=== PATIENT | female | born 1990 | race Two or more races ===

== ENCOUNTER → 2017-09-18 | Outpatient (CLI) | payer OTHER ==
[~2017-09-18] VITALS: Ht 163.8 cm; Wt 111.4 kg
[~2017-09-18] MED LIST: ADVAIR 100/501 DISK AEROSOL; ADVAIR 250/501 DISK IH; EPIPEN ADU0.3 MG/0.3 IM; IBUPROFEN800 MG PO; PRENATAL VITAM1 EA11 PO; PROCTOFOAM-HC10 GM PR; PROVENTIL HFA6.7 GM IH; VENTOLIN HFA18 GM IH
[2017-09-18 15:16] VITALS: BP 139/71
== END | disposition home or self-care (01) ==
LOC: IVINF 15:00
DX: Z34.83 Encounter for supervision of other normal pregnancy, third trimester (principal); Z3A.28 28 weeks gestation of pregnancy; Z67.41 Type O blood, Rh negative
CPT/HCPCS: 96372

== ENCOUNTER 2017-10-27 22:48 | Outpatient (CLI) | payer OTHER ==
[~2017-10-27] VITALS: Ht 165.1 cm; Wt 104.5 kg
[2017-10-27 23:18] VITALS: BP 116/63
[2017-10-28 00:22] VITALS: BP 102/55
== END 2017-10-28 01:17 | disposition home or self-care (01) ==
LOC: LDRP-OP 22:48 → 2WEST 22:49 → LDRP-OP 01-06 08:56
DX: O99.89 Other specified diseases and conditions complicating pregnancy, childbirth and the puerperium (principal); R11.2 Nausea with vomiting, unspecified; O99.513 Diseases of the respiratory system complicating pregnancy, third trimester; J45.909 Unspecified asthma, uncomplicated; Z3A.34 34 weeks gestation of pregnancy
CPT/HCPCS: 59025; G0378; J7120

== ENCOUNTER 2017-11-18 14:35 | Inpatient (IN) | payer OTHER ==
[~2017-11-18] VITALS: Ht 165.1 cm; Wt 111.5 kg
[2017-11-18 14:55] VITALS: BP 118/72
[2017-11-18 18:24] LABS: BASOPHIL (%) 0.1 % (0-1); EOSINOPHIL (%) 0.9 % (0-5); EOSINOPHIL COUNT 0.1 K/uL (0-0.3); HEMATOCRIT 32.1 % (36.0-46.0); HEMOGLOBIN 10.3 G/DL (11.9-15.5); IMMATURE GRANULOCYTE (%) 0.7 % (0.0-0.7); LYMPHOCYTE (%) 25.4 % (15-42); LYMPHOCYTE COUNT 2.3 K/uL (1.0-2.8); MCH 26.3 PG (29.0-34.0); MCHC 32.1 G/DL (30.0-36.0); MCV 82.1 FL (83-99); MONOCYTE (%) 5.6 % (3-12); MONOCYTE COUNT 0.5 K/uL (0-0.8); NEUTROPHIL (%) 67.3 % (45-76); PLATELET COUNT 232 K/uL (156-360); RBC DIS.WIDTH-CV 15.9 % (11.8-14.6); RBC DIS.WIDTH-SD 47.3 % (39-53); RED BLOOD COUNT 3.91 M/uL (3.80-5.20); WHITE BLOOD COUNT 8.9 K/uL (4.1-10.2)
[2017-11-18 18:44] LABS: AMPHETAMINE NEGATIVE (500 ng/mL); BARBITURATES NEGATIVE (200 ng/mL); BENZODIAZEPINES NEGATIVE (150 ng/mL); BUPRENORPHINE NEGATIVE (10 ng/mL); COCAINE NEGATIVE (150 ng/mL); METHADONE NEGATIVE (200 ng/mL); METHAMPHETAMINE NEGATIVE (500 ng/mL); OPIATES (MORPHINE) NEGATIVE (100 ng/mL); OXYCODONE NEGATIVE (100 ng/mL); PHENCYCLIDINE NEGATIVE (25 ng/mL); PROPOXYPHENE NEGATIVE (300 ng/mL); THC CANNABINOIDS NEGATIVE (50 ng/mL); TRICYCLIC ANTIDEPRESSANTS NEGATIVE (300 ng/mL)
[2017-11-18 19:20] VITALS: BP 125/62
[2017-11-18 23:33] VITALS: BP 105/55
[2017-11-19 02:28] VITALS: BP 109/59
[2017-11-19 07:09] VITALS: BP 107/59
[2017-11-19 10:39] VITALS: BP 115/53
[2017-11-19] MEDS ORDERED: IBUPROFEN800 MG PO (17:25)
[2017-11-19] MEDS ORDERED: ENDOCET 5-3251 EACH PO (17:25)
[2017-11-19] MEDS ORDERED: DOCUSATE SODIU100 MG PO (17:25)
[2017-11-19 19:56] VITALS: BP 120/58
[2017-11-19 22:41] VITALS: BP 105/57
[2017-11-20 02:50] VITALS: BP 97/51
[2017-11-20 07:04] VITALS: BP 119/67
[2017-11-20 07:09] LABS: BASOPHIL (%) 0.2 % (0-1); EOSINOPHIL (%) 0.9 % (0-5); EOSINOPHIL COUNT 0.1 K/uL (0-0.3); HEMATOCRIT 29.8 % (36.0-46.0); HEMOGLOBIN 9.2 G/DL (11.9-15.5); IMMATURE GRANULOCYTE (%) 0.5 % (0.0-0.7); LYMPHOCYTE (%) 26.1 % (15-42); LYMPHOCYTE COUNT 2.3 K/uL (1.0-2.8); MCH 25.8 PG (29.0-34.0); MCHC 30.9 G/DL (30.0-36.0); MCV 83.5 FL (83-99); MONOCYTE (%) 8.1 % (3-12); MONOCYTE COUNT 0.7 K/uL (0-0.8); NEUTROPHIL (%) 64.2 % (45-76); NEUTROPHIL COUNT 5.7 K/uL (1.8-6.4); PLATELET COUNT 190 K/uL (156-360); RBC DIS.WIDTH-CV 15.7 % (11.8-14.6); RBC DIS.WIDTH-SD 47.4 % (39-53); RED BLOOD COUNT 3.57 M/uL (3.80-5.20); WHITE BLOOD COUNT 8.8 K/uL (4.1-10.2)
[2017-11-20 11:33] VITALS: BP 122/61
[2017-11-20 15:42] VITALS: BP 110/60
[2017-11-21 07:14] VITALS: BP 107/55
[2017-11-21 11:04] VITALS: BP 109/53
== END 2017-11-21 18:15 | disposition home or self-care (01) | DRG 765 ==
LOC: LDRP-OP 14:35 → 2WEST 14:36 → LDRP-OP 01-06 01:24
PROVIDERS: Obstetrics & Gynecology
PROC: 10D00Z1 Extraction of Products of Conception, Low, Open Approach (ICD-10-PCS; principal; 2017-11-19)
DX: O64.1XX0 Obstructed labor due to breech presentation, not applicable or unspecified (principal); O41.03X0 Oligohydramnios, third trimester, not applicable or unspecified; O99.824 Streptococcus B carrier state complicating childbirth; Z3A.37 37 weeks gestation of pregnancy; Z37.0 Single live birth; O99.214 Obesity complicating childbirth; E66.01 Morbid (severe) obesity due to excess calories; Z68.41 Body mass index [BMI] 40.0-44.9, adult; O99.89 Other specified diseases and conditions complicating pregnancy, childbirth and the puerperium; M41.9 Scoliosis, unspecified; O99.52 Diseases of the respiratory system complicating childbirth; J45.909 Unspecified asthma, uncomplicated; O99.353 Diseases of the nervous system complicating pregnancy, third trimester; G43.109 Migraine with aura, not intractable, without status migrainosus
CPT/HCPCS: 83030; 85025; 86850; 86870; 86900; 86901; 86905; 86920; 87086; 99202; G0378; J1170; J1200; J1580; J2250; J2274; J2790; J3010; J7050; J7120